=== PATIENT | female | born 1985 | race Caucasian/White ===

== ENCOUNTER 2019-07-05 22:06 | Emergency (ER) | payer OTHER, SELFPAY ==
[2019-07-05 22:17] VITALS: BP 132/78; PULSE 103; RESP 18; TEMP 36.6; O2SAT 98; BMI 25.8
--- NOTE | 2019-07-05 22:20 | DI.RAD.S_ITS ---
PROCEDURE: XR CHEST 1V INDICATIONS: chest pain TECHNIQUE: One view of the chest was acquired. COMPARISON: None. FINDINGS: Surgical changes and devices: None. Lungs and pleura: Lungs are clear. No pleural effusions or pneumothorax. Mediastinum: Mediastinal contours appear normal. Heart size is normal. Bones and chest wall: No suspicious bony lesions. Overlying soft tissues appear unremarkable. IMPRESSION: Negative chest. No acute cardiopulmonary process is evident. Dictated by: Zaid Field M.D. on 07/06/2019 at 7:53 Approved by: Zaid Field M.D. on 07/06/2019 at 7:54
--- NOTE | 2019-07-05 22:22 | PC.NURSE ---
Pt reports feeling Impending doom and called 911 afrer a second episode of rapid hearrt beat. Pt I watch captured rate in the 160s. Pt on monitor, ekg performed, denies needs at this time. Provider at bedside.
[2019-07-05 22:32] VITALS: BP 119/86; PULSE 101; RESP 12; O2SAT 99
--- NOTE | 2019-07-05 22:35 | PC.NURSE ---
drawn by lab
[2019-07-05 22:45] LABS: Add Manual Diff / Slide Review NO; Basophils Absolute Auto 0 /uL (0-100); Basophils Percent Auto 0.2 % (0-2); Eosinophils Absolute Auto 0 /uL (0-450); Eosinophils Percent Auto 0.9 % (2-4); Hematocrit 35.7 % (36-46); Hemoglobin 12.1 g/dL (12.0-16.0); Lymphocytes Absolute Auto 2100 /uL (1100-4500); Lymphocytes Percent Auto 37.6 % (25-40); Mean Corpuscular HGB Conc 33.9 % (30-36); Mean Corpuscular Volume 88.5 fL (80-100); Monocytes Absolute Auto 400 /uL (0-900); Monocytes Percent Auto 6.8 % (3-14); Neutrophils Absolute Auto 3100 /uL (1500-7000); Neutrophils Percent Auto 54.5 % (50-75); Platelet Count 204 X10^3/uL (150-400); Red Blood Cell Count 4.03 X10^6/uL (4.0-5.2); White Blood Cell Count 5.7 X10^3/uL (4.5-11.0)
[2019-07-05 22:53] LABS: Alanine Aminotransferase 21 IU/L (9-52); Albumin 3.8 g/dL (3.5-5.0); Albumin Globulin Ratio 1.2 (1.0-2.8); Alkaline Phosphatase 45 U/L (38-126); Aspartate Aminotransferase 23 IU/L (14-36); BUN Creatinine Ratio 21.7 (6-22); Bilirubin Total 0.7 mg/dL (0.2-1.3); Blood Urea Nitrogen 13 mg/dL (7-17); Calcium 8.6 mg/dL (8.4-10.2); Carbon Dioxide 23 mmol/L (22-32); Chloride 103 mmol/L (98-107); Estimated Glomerular Filt Rate > 60.0 mL/min (>60); Globulin 3.1 g/dL (1.7-4.1); Glucose 134 mg/dL (70-100); HEMOLYSIS < 15 (0-50); Lipase 65 U/L (23-300); Sodium 134 mmol/L (137-145); Total Protein 6.9 g/dL (6.3-8.2)
--- NOTE | 2019-07-05 23:02 | ED_ITS ---
HPI - Arrhythmia/Palpitations General Chief Complaint: Arrhythmia/Palpitations Stated Complaint: Fast HR since approx 2030 Time Seen by Provider: 07/05/19 22:15 Source: patient Mode of arrival: EMS Limitations: no limitations History of Present Illness HPI narrative: A 33-year-old otherwise healthy female here for evaluation of palpitations and a fast heart rate. Earlier this evening patient did partake in some alcohol and also smoked marijuana. States that she did by the marijuana from a local shop here in town. Has smoked marijuana in the past but it has been several years. Very shortly after partaking in the substances she started having palpitations. Some chest heaviness. EMS was called. She feels somewhat better now than when she did when the symptoms 1st started Related Data Home Medications Medication Instructions Recorded Confirmed No Known Home Medications 07/05/19 07/05/19 Allergies Allergy/AdvReac Type Severity Reaction Status Date / Time No Known Drug Allergies Allergy Verified 07/05/19 23:14 Review of Systems Constitutional Constitutional: Denies frequent falls and Denies headache(s) ENT Ears, Nose, Mouth, and Throat: Denies headache(s) Cardiovascular Cardiovascular: Reports chest pain, Denies diaphoresis, Reports rapid heart rate, Reports palpitations and Reports dyspnea Respiratory Respiratory: Reports dyspnea Gastrointestinal Gastrointestinal: Denies abdominal pain, Denies nausea and Denies vomiting Genitourinary Genitourinary: Denies dysuria Musculoskeletal Musculoskeletal: Denies myalgias and Denies arthralgias Integumentary/Breasts Skin/Breast: Denies lesions and Denies rash Neurologic Neurologic: Denies behavioral changes, Denies frequent falls and Denies headache(s) Psychiatric Psychiatric: Denies behavioral changes Endocrine Endocrine: Reports palpitations Hematologic/Lymphatic Hematologic/Lymphatic: Denies easy bleeding and Denies easy bruising [facility] Medical History Anxiety (Acute) Social History lives independently: Yes Social History lives independently: Yes Exam Initial Vital Signs Initial Vital Signs: Vital Signs Temperature 97.8 F 07/05/19 22:17 Pulse Rate 103 H 07/05/19 22:17 Respiratory Rate 18 07/05/19 22:17 Blood Pressure 132/78 07/05/19 22:17 Pulse Oximetry 98 07/05/19 22:17 Const General: cooperative, comfortable, well developed and well groomed Orientation: alert, awake and oriented x3 HENMT Head: normal to inspection and normocephalic Resp Effort & Inspection: normal respiratory effort Auscultation: clear to auscultation bilaterally Cardio Rate: tachycardic Rhythm: regular rhythm Pulses: radial pulses present GI Inspection: non-distended Palpation: soft, No firm and No tender Skin Lesions: no lesions Rashes: no rashes Neuro General: alert and awake Cognition: normal cognition Speech: speech normal Motor: muscle tone normal throughout Sensory Exam: no sensory deficits noted Extrem General: normal to inspection and capillary refill normal Psych Appearance: grossly normal and well kempt Course Orders Ordered: ED Orders 07/05/19 22:09 EKG-12 Lead Stat 07/05/19 22:20 XR chest 1V Stat EKG-12 Lead Stat 07/05/19 22:32 Complete Blood Count AUTO DIFF Stat Comprehensive Metabolic Panel Stat Lipase Stat Discontinued Medications Lorazepam (Ativan) 0.5 mg PO NOW ONE Stop: 07/05/19 23:14 Last Admin: 07/05/19 23:17 Dose: 0.5 mg Documented by: GOMEZ Vital Signs Vital signs: Vital Signs - 8 hr 07/05/19 22:17 07/05/19 22:32 07/05/19 23:05 Temperature 97.8 F Pulse Rate 103 H 101 H 93 H Respiratory Rate 18 12 17 Blood Pressure 132/78 Blood Pressure [Right Arm] 119/86 113/74 Pulse Oximetry 98 99 100 07/05/19 23:46 Temperature Pulse Rate 92 H Respiratory Rate Blood Pressure Blood Pressure [Right Arm] 110/75 Pulse Oximetry MDM - Arrhythmia/Palpitations Lab Data Attestation: I reviewed the patient's lab results. Result diagrams: 07/05/19 22:32 07/05/19 22:32 Labs: Lab Results 07/05/19 07/05/19 07/05/19 Range/Units 22:32 22:32 22:32 WBC 5.7 (4.5-11.0) X10^3/uL RBC 4.03 (4.0-5.2) X10^6/uL Hgb 12.1 (12.0-16.0) g/dL Hct 35.7 L (36-46) % MCV 88.5 (80-100) fL MCH 30.0 (26-34) PG MCHC 33.9 (30-36) % RDW 15.0 H (11.6-14.8) % Plt Count 204 (150-400) X10^3/uL Neut % (Auto) 54.5 (50-75) % Lymph % (Auto) 37.6 (25-40) % [place] % (Auto) 6.8 (3-14) % Eos % (Auto) 0.9 L (2-4) % Baso % (Auto) 0.2 (0-2) % Neut # (Auto) 3100 (3461-3916) /uL Lymph # (Auto) 2100 (0092-6604) /uL [place] # (Auto) 400 (0-900) /uL Eos # (Auto) 0 (0-450) /uL Baso # (Auto) 0 (0-100) /uL PT Cancelled INR Cancelled APTT Cancelled Sodium 134 L (137-145) mmol/L Potassium 3.0 L (3.4-5.1) mmol/L Chloride 103 (98-107) mmol/L Carbon Dioxide 23 (22-32) mmol/L BUN 13 (7-17) mg/dL Creatinine 0.60 (0.52-1.04) mg/dL Estimated GFR > 60.0 (>60) mL/min BUN/Creatinine Ratio 21.7 (6-22) Glucose 134 H (70-100) mg/dL Calcium 8.6 (8.4-10.2) mg/dL Total Bilirubin 0.7 (0.2-1.3) mg/dL AST 23 (14-36) IU/L ALT 21 (9-52) IU/L Alkaline Phosphatase 45 (38-126) U/L Total Creatine Kinase Cancelled CK-MB (CK-2) Cancelled CK-MB (CK-2) Rel Index Cancelled Troponin I Cancelled Total Protein 6.9 (6.3-8.2) g/dL Albumin 3.8 (3.5-5.0) g/dL Globulin 3.1 (1.7-4.1) g/dL Albumin/Globulin Ratio 1.2 (1.0-2.8) Lipase 65 (23-300) U/L Imaging Data Chest x-ray: Attestation: I personally reviewed and interpreted this imaging study as follows: My impression: No pneumonia, no pneumothorax, normal size heart ECG Data Attestation: I personally reviewed and interpreted this ECG as follows: Prior ECG tracings: not available for review Interpretation: Sinus tachycardia Ventricular rate of 105 Normal QRS Normal QTC No ST T wave changes MDM Narrative Medical decision making narrative: Patient was tachycardic upon arrival however this is improved. EKG was unremarkable except for the tachycardia. Patient has had symptoms since being here however only thing that is presented on the monitor has been PVCs. I do suspect that her symptoms are related to the marijuana in the alcohol that she had earlier this evening. Doubt ACS. Will hold on further workup for now. Will have patient contact her primary provider when she returns home. She expressed understanding and agreement with plan. Discharge Plan Departure Patient Disposition: Home Clinical Impression: Palpitations, Anxiety Instructions: DI for Palpitations Activity Restrictions/Additional Instructions: No driving for the next 24 hours or in the future if you partake in intoxicating substances. Contact your primary doctor when he returns home to discuss the indications for a Holter monitor. Return to the emergency department for any new or worsening symptoms Prescriptions: No Action No Known Home Medications RF: 0
[2019-07-05 23:05] VITALS: BP 113/74; PULSE 93; RESP 17; O2SAT 100
[2019-07-05] MEDS: LORazepam 0.5 MG TABLET PO (23:17)
[2019-07-05 23:46] VITALS: BP 110/75; PULSE 92
[2019-07-06 00:41] VITALS: BP 109/69; PULSE 82; RESP 14; O2SAT 97
== END 2019-07-06 00:43 | disposition home or self-care (01) ==
PROVIDERS: Emergency Provider Emergency Medicine
DX: R00.2 Palpitations (principal); F41.9 Anxiety disorder, unspecified; R07.9 Chest pain, unspecified; R00.0 Tachycardia, unspecified
CPT/HCPCS: 36415; 71045; 80053; 83690; 85025; 93005; 99283; 99285